=== PATIENT | male | born 1945 | race Caucasian/White ===

== ENCOUNTER → 2024-07-18 18:13 | Outpatient (REF) | payer OTHER, SELFPAY | LOC: MRI 18:13 | PROVIDERS: ATTENDING PHYSICIAN Student in an Organized Health Care Education/Training Program; FAMILY PHYSICIAN Internal Medicine | DX: M54.59 Other low back pain (principal) | CPT/HCPCS: 72148 ==

== ENCOUNTER → 2024-11-25 14:08 | Outpatient (REF) | payer OTHER, SELFPAY | LOC: RCS 14:08 | PROVIDERS: ATTENDING PHYSICIAN Thoracic Surgery (Cardiothoracic Vascular Surgery); FAMILY PHYSICIAN Internal Medicine | DX: Z98.890 Other specified postprocedural states (principal) | CPT/HCPCS: 93306 ==

== ENCOUNTER → 2024-11-27 09:02 | Outpatient (REF) | payer OTHER, SELFPAY | LOC: RAD 09:02 | PROVIDERS: ATTENDING PHYSICIAN Specialist; FAMILY PHYSICIAN Internal Medicine | DX: R97.21 Rising PSA following treatment for malignant neoplasm of prostate (principal); C61 Malignant neoplasm of prostate | CPT/HCPCS: 78306; A9503 ==

== ENCOUNTER → 2024-12-11 07:25 | Outpatient (REF) | payer OTHER, MEDICARE, SELFPAY | LOC: RAD 07:25 | PROVIDERS: ATTENDING PHYSICIAN Specialist; FAMILY PHYSICIAN Internal Medicine | DX: C61 Malignant neoplasm of prostate (principal) | CPT/HCPCS: 74178; Q9967 ==

== ENCOUNTER 2025-02-22 15:17 | Emergency (ER) | payer OTHER, MEDICARE, SELFPAY ==
[2025-02-22 15:23] VITALS: BP 180/86
--- NOTE | 2025-02-22 17:37 | ED.GENMED ---
History of Present Illness
General
Chief Complaint: Skin Surface Trauma
Source: patient and spouse
Exam Limitations: none
Time Seen by Provider: 02/22/25 16:43
Nursing documentation reviewed up to this point in time: agreed with
History of Present Illness
History of Present Illness:
79-year-old male with past medical history of hypertension hyperlipidemia, GERD presenting to the emergency department today with concerns of laceration to his forehead from a piece of plastic that broke while cleaning his pool. Denies loss of
consciousness denies numbness weakness neck pain shortness of breath.
Past History
Past History
ED Past Medical History: Cancer, GERD, HTN, Hypercholesterolemia, Other and Other
ED Past Surgical History: Appendectomy and Orthopedic
Social History
Tobacco: Former smoker
Alcohol: None
Drug: None
Personal:
Living: with family
Employment: Retired
Family History
Family History: Diabetes
Review of Systems
Review of Systems
Allergies reviewed?: Yes
All Other Systems: ROS reviewed and negative except as documented in HPI and ROS
Phy Exam
Physical Exam
Physical Exam:
GENERAL: Alert , in no apparent distress
EYE: pupils equal and reactive
NECK: Supple, no significant adenopathy.
ENT: V-shaped laceration just medial to the left eyebrow. 2.5 cm in total length. Well-vascularized flap o/p clr, mmm.
CARDIAC: Regular rate and rhythm .
LUNGS: Clear breath sounds bilaterally, no acute respiratory distress, no wheezes/rales/rhonchi
ABDOMEN: Soft, without focal tenderness, no r/g, no cvat
NEUROLOGICAL: Alert and oriented, no focal neuro deficits
SKIN: Warm and dry, skin intact.
MUSCULOSKELETAL: No edema, well perfused.
PSYCH: Normal and appropriate interaction.
Course
Orders/Labs/Results
Orders:
Orders
02/22/25 17:04
Tetanus/Diphth/Acelpertussis [Adacel] 0.5 ml IM .ONCE ONE
Vital Signs
Initial and Last Documented VS:
Initial Vital Signs
Temp Pulse Resp BP Pulse Ox
97.5 F 60 20 180/86 98
02/22/25 15:23 02/22/25 15:23 02/22/25 15:23 02/22/25 15:23 02/22/25 15:23
Last Documented Vital Signs
Temp Pulse Resp BP Pulse Ox
97.5 F 60 20 140/78 98
02/22/25 15:23 02/22/25 15:23 02/22/25 15:23 02/22/25 17:44 02/22/25 15:23
Procedures
Laceration Closure
Left Eye:
Status of Wound: clean
Size of Wound in cm: 2.5
Description of Wound Edges: sharp and flap-well vascularized
Preparation: cleaned with saline
Anesthesia: 1% Lidocaine with epi
Revision/Debridement: routine- no revision
Wound exploration: explored to base- no FB
Type of Closure: single layer closure and interrupted sutures
Skin Closure Material: 5-0 nylon
Number of sutures: 3
MDM/Problems Addressed
MDM/Problems Addressed:
79-year-old male presenting to the emergency department today with concerns of a laceration to his left eyebrow region. Otherwise no emergent findings on blood thinners no loss of consciousness no numbness weakness. Happened multiple hours ago
without any progressive symptoms. Area was cleaned thoroughly and closed with 3 stitches. Advised for removal in 7 days. Given an updated tetanus shot. Return precautions given.
*Critical Care Note
Total Time (30-74mins, 75-104mins- exclusive of procedures): Not Applicable
ED Attending Note
-
Portions of this chart may have been created with voice recognition software.� Occasional wrong word or��sound alike� substitutions may have occurred due to the inherent limitations of voice recognition software.
Discharge Plan
Departure
Patient Disposition: Home (Routine Discharge)
Date of Disposition: 02/22/25
Time of Disposition: 17:38
Patient with high blood pressure during this ER visit?: No
Condition: Good
Covid-19: Not Applicable
Discharge Problem:
Facial laceration
Instructions: Laceration Repair With Stitches (DC)
Prescriptions:
No Action
multivitamin Tablet
1 tab PO DAILY
atorvastatin 40 mg Tablet
40 mg PO HS
cetirizine 5 mg Tablet
5 mg PO DAILY
tamsulosin 0.4 mg Capsule
0.4 mg PO HS
fluticasone propionate 50 mcg/actuation [place],Suspension
1 spray INTRANASAL DAILY
naproxen sodium [Aleve] 220 mg Tablet
440 mg PO PRN PRN (Reason: pain)
Medical Marijuana
1 drp PO HS
metoprolol tartrate 25 mg Tablet
25 mg PO BID Qty: 60 1RF
aspirin 81 mg Tablet,Chewable
81 mg PO DAILY Qty: 0 0RF
acetaminophen 325 mg Tablet
650 mg PO Q4HPRN PRN (Reason: mild pain,headache,temp >101F ) Qty: 0 0RF
omeprazole 40 mg capsule,delayed release(DR/EC)
40 mg PO DAILY Qty: 30 0RF
warfarin 5 mg tablet
7.5 mg PO HS
Referrals:
Andres Diaz MD [Family Provider] -
Activity Restrictions/Additional Instructions:
You came to the emergency department today with concerns of a laceration. This was closed with 3 not dissolving stitches. Please keep the area clean covered and follow-up for removal in 7 days. Return for any worsening, new or concerning symptoms.
Interventions
Interventions:
*Risk Screen - Suicide Last Done: 02/22/25 15:29
*General Assessment Last Done: 02/22/25 17:56
*Neglect/Abuse Screening Last Done: 02/22/25 15:29
*ED- Fall Risk Assessment Last Done: 02/22/25 17:45
*ED COVID-19 Vaccine History Last Done: 02/22/25 15:29
*Nursing Disposition Last Done: 02/22/25 17:56
ED-Skin Assessment Last Done: 02/22/25 17:03
Discharge Date and Time
Discharge Date/Time: 02/22/25 17:57
Print Language: NICARAGUAN
[2025-02-22] MEDS: ADACEL 0.5 ML IM (17:42)
[2025-02-22 17:44] VITALS: BP 140/78
== END 2025-02-22 17:57 | disposition home or self-care (01) ==
LOC: EMR 15:17
PROVIDERS: EMERGENCY PHYSICIAN Student in an Organized Health Care Education/Training Program; FAMILY PHYSICIAN Internal Medicine
DX: S01.112A Laceration without foreign body of left eyelid and periocular area, initial encounter (principal); W25.XXXA Contact with sharp glass, initial encounter; I10 Essential (primary) hypertension; E78.00 Pure hypercholesterolemia, unspecified; Z87.891 Personal history of nicotine dependence; Z23 Encounter for immunization
CPT/HCPCS: 99282; 12011; 90471; 90715

== ENCOUNTER 2025-04-11 11:34 | Emergency (ER) | payer OTHER, MEDICARE, SELFPAY ==
[2025-04-11 11:40] VITALS: BP 125/68
[2025-04-11 12:16] VITALS: BMI 33.2
[2025-04-11 12:21] VITALS: BP 178/89
--- NOTE | 2025-04-11 12:35 | ED.GENMED ---
History of Present Illness
General
Chief Complaint: Dizziness
Time Seen by Provider: 04/11/25 12:27
History of Present Illness
History of Present Illness:
79-year-old male with history of hypertension, hyperlipidemia, mitral valve regurgitation status post mitral valve repair, aortic stenosis status post AVR, prostate cancer currently on Lupron, Tadeo's esophagus and peptic ulcer disease presents to
the emergency department for evaluation of fatigue. He states for the past several weeks he has felt profoundly fatigued with any degree of activity he denies any associated dyspnea on exertion or chest pain. He notes that he had 2 syncopal events
last week while urinating. He saw his primary care physician at which time he had an EKG and blood work and was told to follow-up with his envelope folder however does not have that appointment for another few weeks. He currently feels fatigued but
denies any other complaints. No recent fevers or chills. No recent medication changes. No recent illnesses. Is very active typically and does work outside often but denies any known tick bites.
Past History
Past History
ED Past Medical History: Cancer, GERD, HTN, Hypercholesterolemia, Other and Other
ED Past Surgical History: Appendectomy and Orthopedic
Social History
Tobacco: Former smoker
Alcohol: None
Drug: None
Personal:
Living: with family
Employment: Retired
Family History
Family History: Diabetes
Review of Systems
Review of Systems
Allergies reviewed?: Yes
All Other Systems: ROS reviewed and negative except as documented in HPI and ROS
Phy Exam
Physical Exam
Physical Exam:
GEN: Well appearing, NAD, WDWN
HEENT: Oral mucosa moist, no scleral icterus
Cardiac: Regular rate and rhythm, no murmurs
Lung: No respiratory distress, no tachypnea, lungs clear to auscultation bilaterally
MSK: No gross deformity or injuries
Skin: Good color, no pallor or jaundice, no rashes
Neuro: AO x3, moves all extremities freely
Psych: Calm, cooperative
Course
Orders/Labs/Results
Orders:
Orders
04/11/25 11:34
Electrocardiogram (*1) Urgent
Reason for Study: Vertigo / Dizzy
EKG- Treatment ONCE
04/11/25 12:30
CMP [Comprehensive Metabolic Panel] Urgent
Complete Blood Count/With Diff Urgent
Lyme Progressive Urgent
Comment: ADD ON
TSH Reflex To Free T4 Urgent
Comment: ADD ON
04/11/25 12:32
Troponin I Urgent
04/11/25 12:34
Add On- LAB Urgent
Tests Added?: TSH w reflex; Lyme Progressive
Abnormal Lab Results
04/11/25
12:30
RBC 4.37 L 10^6/uL
(4.70-6.10)
Hct 38.7 L %
(39.0-52.0)
MPV 10.5 H fL
(7.4-10.4)
Absolute Lymphs (auto) 1.0 L 10^3/uL
(1.2-3.4)
Absolute Monos (auto) 0.7 H 10^3/uL
(0.1-0.6)
Lymphocytes % 19.4 L %
(20.5-51.1)
Monocytes % 14.5 H %
(1.7-9.3)
Potassium 5.2 H mmol/L
(3.5-5.1)
Chloride 109 H mmol/L
(98-107)
BUN 26 H mg/dl
(9-20)
Glucose 124 H mg/dl
(70-99)
04/11/25 12:30
04/11/25 12:30
Vital Signs
Initial and Last Documented VS:
Initial Vital Signs
Temp Pulse Resp BP Pulse Ox
97.6 F 55 16 125/68 98
04/11/25 11:40 04/11/25 11:40 04/11/25 11:40 04/11/25 11:40 04/11/25 11:40
Last Documented Vital Signs
Temp Pulse Resp BP Pulse Ox
97.6 F 57 13 138/84 99
04/11/25 11:40 04/11/25 13:15 04/11/25 13:15 04/11/25 14:00 04/11/25 14:00
MDM/Problems Addressed
MDM/Problems Addressed:
Cause of the patient's fatigue is not immediately clear. He is noted to have trace hyperkalemia however renal function is baseline, could represent hypovolemia however does not appear clinically dry. Lyme disease test pending. No evidence for
heart block on telemetry. Encouraged continued primary care and cardiology follow-up
Comment
Comment:
EKG independently interpreted by me shows a normal sinus rhythm with occasional PVCs, no ischemic changes
Telemetry reveals occasional bradycardia however no evidence for heart block, occasional PVCs again seen
*Pulse Oximetry
Patient hypoxic: no
Comment: 99% on room air
*Critical Care Note
Total Time (30-74mins, 75-104mins- exclusive of procedures): Not Applicable
ED Attending Note
-
Portions of this chart may have been created with voice recognition software.� Occasional wrong word or��sound alike� substitutions may have occurred due to the inherent limitations of voice recognition software.
Discharge Plan
Departure
Patient Disposition: Home (Routine Discharge)
Date of Disposition: 04/11/25
Time of Disposition: 14:45
Patient with high blood pressure during this ER visit?: No
Discharge Problem:
Fatigue
Instructions: Fatigue (DC)
Prescriptions:
No Action
multivitamin Tablet
1 tab PO DAILY
atorvastatin 40 mg Tablet
40 mg PO HS
cetirizine 5 mg Tablet
5 mg PO DAILY
tamsulosin 0.4 mg Capsule
0.4 mg PO HS
fluticasone propionate 50 mcg/actuation [employer],Suspension
1 spray INTRANASAL DAILY
naproxen sodium [Aleve] 220 mg Tablet
440 mg PO PRN PRN (Reason: pain)
Medical Marijuana
1 drp PO HS
metoprolol tartrate 25 mg Tablet
25 mg PO BID Qty: 60 1RF
aspirin 81 mg Tablet,Chewable
81 mg PO DAILY Qty: 0 0RF
acetaminophen 325 mg Tablet
650 mg PO Q4HPRN PRN (Reason: mild pain,headache,temp >101F ) Qty: 0 0RF
omeprazole 40 mg capsule,delayed release(DR/EC)
40 mg PO DAILY Qty: 30 0RF
warfarin 5 mg tablet
7.5 mg PO HS
Referrals:
Andres Diaz MD [Family Provider, Internal Medicine]
Activity Restrictions/Additional Instructions:
Follow-up with your primary care physician and cardiology as planned
If you have any further events of fainting do not hesitate to return to the emergency department
Interventions
Interventions:
*Risk Screen - Suicide Last Done: 04/11/25 11:40
*General Assessment Last Done: 04/11/25 11:40
*Neglect/Abuse Screening Last Done: 04/11/25 11:40
*ED COVID-19 Vaccine History Last Done: 04/11/25 12:16
ED- Neurological Assessment Last Done: 04/11/25 12:16
Discharge Date and Time
Print Language: FRISIAN
[2025-04-11 12:39] LABS: % Basophils 0.6 % (0-2); % Immature Granulocytes 0.2 % (0-0.5); % Lymphocytes 19.4 % (20.5-51.1); % Monocytes 14.5 % (1.7-9.3); % Neutrophils 64.3 % (42.2-75.2); Absolute Eosinophils 0.1 10^3/uL (0-0.7); Absolute Monocytes 0.7 10^3/uL (0.1-0.6); Absolute Neutrophils 3.2 10^3/uL (1.4-6.5); Hematocrit 38.7 % (39.0-52.0); Hemoglobin 13.3 g/dL (13.0-18.0); Mean Corp Hgb Conc. 34.4 g/dL (33.0-37.0); Mean Corpuscular Hgb 30.4 pg (27.0-31.0); Mean Corpuscular Volume 88.6 fL (80.0-94.0); Mean Platelet Volume 10.5 fL (7.4-10.4); Nucleated Red Blood Cells % 0 % (-); Platelet Count 157 10^3/uL (130-400); Red Blood Cell Count 4.37 10^6/uL (4.70-6.10)
[2025-04-11 12:54] LABS: ALT (SGPT) 31 U/L (0-50); AST (SGOT) 26 U/L (17-59); Albumin 4.4 g/dl (3.5-5.0); Alkaline Phosphatase 59 U/L (38-126); Blood Urea Nitrogen 26 mg/dl (9-20); Calcium 9.4 mg/dl (8.4-10.2); Carbon Dioxide 23 mmol/L (22-30); Chloride 109 mmol/L (98-107); Estimated Creatinine Clearance 67 ml/min; Glucose 124 mg/dl (70-99); Potassium 5.2 mmol/L (3.5-5.1); Sodium 138 mmol/L (135-145); Total Bilirubin 0.9 mg/dl (0.2-1.3); Total Protein 6.9 g/dl (6.3-8.2); eGFR > 60.00
[2025-04-11 13:00] VITALS: BP 121/63
[2025-04-11 13:04] LABS: Troponin I < 0.012 ng/ml
[2025-04-11 14:00] VITALS: BP 138/84
[2025-04-13 13:45] LABS: Lyme Antibody Screen, EIA Negative (Negative)
== END 2025-04-11 14:51 | disposition home or self-care (01) ==
LOC: EMR 11:34
PROVIDERS: Physician Assistant; EMERGENCY PHYSICIAN Emergency Medicine; FAMILY PHYSICIAN Internal Medicine
DX: R53.83 Other fatigue (principal); R42 Dizziness and giddiness; I10 Essential (primary) hypertension; E78.00 Pure hypercholesterolemia, unspecified; I34.0 Nonrheumatic mitral (valve) insufficiency; I35.0 Nonrheumatic aortic (valve) stenosis; C61 Malignant neoplasm of prostate; K22.70 Barrett's esophagus without dysplasia; K21.9 Gastro-esophageal reflux disease without esophagitis; Z87.11 Personal history of peptic ulcer disease; Z87.891 Personal history of nicotine dependence; Z91.048 Other nonmedicinal substance allergy status; Z79.82 Long term (current) use of aspirin; Z79.01 Long term (current) use of anticoagulants
CPT/HCPCS: 99283; 80053; 84443; 84484; 85025; 86618; 93005

== ENCOUNTER 2025-09-11 09:44 | Day surgery (SDC) | payer OTHER, SELFPAY ==
--- NOTE | 2025-09-11 10:47 | ITS.CL.CARDI ---
[facility] - Cardioversion
Cardioversion
Procedure Report:
Date of Procedure: 09/11/25
Procedure: Cardioversion
Indication: Symptomatic atrial fibrillation
Performing Physician: Brannon Cooper MD
Technique: The patient was brought to the holding area. Signed informed consent was obtained. A time out was called and performed. The patient was anesthetized by the anesthesia service. Anticoagulation status was reviewed and appropriate. R2 pads
were placed anteriorly and posteriorly. A 200 J synchronized biphasic shock restored normal sinus rhythm without significant bradycardia. There were no complications.
Conclusion: Uncomplicated cardioversion from atrial fibrillation to sinus rhythm.
Recommendation: Routine post cardioversion care. Continue long term care pharmacist anticoagulation.
[2025-09-11 10:58] VITALS: BMI 35.9
== END 2025-09-11 11:51 | disposition home or self-care (01) ==
LOC: CATH 09:44
PROVIDERS: ATTENDING PHYSICIAN Internal Medicine Cardiovascular Disease; FAMILY PHYSICIAN Internal Medicine; OTHER PHYSICIAN Internal Medicine Cardiovascular Disease
DX: Z79.01 Long term (current) use of anticoagulants (principal); I48.91 Unspecified atrial fibrillation; I10 Essential (primary) hypertension; K21.9 Gastro-esophageal reflux disease without esophagitis; E78.00 Pure hypercholesterolemia, unspecified
CPT/HCPCS: 92960; 93005

== ENCOUNTER → 2025-10-09 10:14 | Outpatient (REF) | payer OTHER, SELFPAY | LOC: HWRCS 10:14 | PROVIDERS: ATTENDING PHYSICIAN Internal Medicine Cardiovascular Disease; FAMILY PHYSICIAN Internal Medicine | DX: I49.3 Ventricular premature depolarization (principal) | CPT/HCPCS: 93306 ==